=== PATIENT | female | born 1965 | race Asian ===

== ENCOUNTER → 2024-07-26 09:33 | Outpatient (REF) | payer OTHER, SELFPAY | LOC: HWWDC 09:33 | PROVIDERS: ATTENDING PHYSICIAN Obstetrics & Gynecology Gynecology; FAMILY PHYSICIAN Internal Medicine | DX: Z12.31 Encounter for screening mammogram for malignant neoplasm of breast (principal) | CPT/HCPCS: 77063; 77067 ==

== ENCOUNTER → 2025-06-30 13:54 | Outpatient (REF) | payer OTHER, SELFPAY | LOC: RAD 13:54 | DX: Z78.0 Asymptomatic menopausal state (principal); M79.675 Pain in left toe(s) | CPT/HCPCS: 73630 ==